=== PATIENT | female | born 1985 | race Caucasian/White ===

== ENCOUNTER → 2019-10-08 16:15 | Outpatient (CLI) | payer OTHER, MEDICAID, SELFPAY ==
[2019-10-08 17:22] LABS: Add Manual Diff / Slide Review NO; Basophils Absolute Auto 0 /uL (0-100); Basophils Percent Auto 0.4 % (0-2); Eosinophils Absolute Auto 300 /uL (0-450); Eosinophils Percent Auto 2.4 % (2-4); Hematocrit 44.6 % (36-46); Hemoglobin 15.4 g/dL (12.0-16.0); Lymphocytes Absolute Auto 2700 /uL (1100-4500); Lymphocytes Percent Auto 25.2 % (25-40); Mean Corpuscular HGB Conc 34.6 % (30-36); Mean Corpuscular Hemoglobin 30.6 PG (26-34); Mean Corpuscular Volume 88.6 fL (80-100); Monocytes Absolute Auto 800 /uL (0-900); Monocytes Percent Auto 7.5 % (3-14); Neutrophils Absolute Auto 6900 /uL (1500-7000); Neutrophils Percent Auto 64.5 % (50-75); Platelet Count 214 X10^3/uL (150-400); Red Blood Cell Count 5.03 X10^6/uL (4.0-5.2); Red Cell Distribution Width 13.5 % (11.6-14.8); White Blood Cell Count 10.6 X10^3/uL (4.5-11.0)
[2019-10-08 17:25] LABS: Appearance Urine UA CLEAR; Bilirubin Urine UA NEGATIVE (NEGATIVE); Color Urine UA YELLOW; Glucose Urine UA NEGATIVE (Negative); Ketones Urine UA NEGATIVE (NEGATIVE); Leukocyte Esterase Urine UA NEGATIVE (NEGATIVE); Nitrite Urine UA NEGATIVE (Negative); Occult Blood Urine UA TRACE-LYSED (Negative); Protein Urine UA NEGATIVE (Negative); Specific Gravity Urine UA >=1.030 (1.000-1.035); Urobilinogen Urine UA 0.2 E.U./dL (0.2)
[2019-10-08 17:43] LABS: Glucose 102 mg/dL (70-100)
[2019-10-08 17:51] LABS: Hemoglobin A1C% w Est Avg Glu 5.3 % (4.0-6.0)
[2019-10-08 18:19] LABS: Hepatitis B Surface Antigen NEGATIVE s/c (NEGATIVE); Rubella Antibody IgG 80.4 IU/mL (>15)
[2019-10-08 18:23] LABS: Thyroid Stimulating Hormone 1.04 uIU/mL (0.47-4.68)
[2019-10-08 18:37] LABS: HIV 1 & 2 Ab/Ag 4th Gen Combo NEGATIVE (NEGATIVE); Hep C Virus Ab w/Reflex Quant NEGATIVE s/c (NEGATIVE)
[2019-10-09 08:09] LABS: RPR Screen Non Reactive (Non Reactive); Varicella IgG Antibody 3026 index (Immune >165)
== END ==
PROVIDERS: PCP Family Medicine Geriatric Medicine
DX: O09.521 Supervision of elderly multigravida, first trimester (principal); Z83.49 Family history of other endocrine, nutritional and metabolic diseases
CPT/HCPCS: 36415; 80055; 81003; 82947; 83036; 84439; 84443; 86787; 86803; 86850; 86900; 86901; 87389

== ENCOUNTER → 2019-11-12 10:45 | Outpatient (CLI) | payer OTHER, MEDICAID, SELFPAY | PROVIDERS: PCP Family Medicine Geriatric Medicine; Referring Provider Obstetrics & Gynecology; Visit Provider Obstetrics & Gynecology | DX: O09.521 Supervision of elderly multigravida, first trimester (principal); Z36.0 Encounter for antenatal screening for chromosomal anomalies; Z3A.12 12 weeks gestation of pregnancy | CPT/HCPCS: 36415; 81420 ==

== ENCOUNTER → 2019-12-10 09:58 | Outpatient (CLI) | payer OTHER, MEDICAID, SELFPAY ==
[2019-12-14 10:19] LABS: AFP, Serum 23.8 ng/mL (.); Calc Gestational Age As provided (.); Inhibin A, Dimeric 191.58 pg/mL (.); Inhibin A, MoM 1.45 (.); Maternal Ethnicity Caucasian (.); Maternal Weight 224 lbs (.); Number of Fetuses No (.); OSBR Risk 1 IN 10000 (.); Results Report (.); Test Results *Screen Negative* (.); hCG, Serum 18078 mIU/mL (.)
== END ==
PROVIDERS: PCP Family Medicine Geriatric Medicine
DX: O09.529 Supervision of elderly multigravida, unspecified trimester (principal); Z3A.16 16 weeks gestation of pregnancy
CPT/HCPCS: 36415; 82105; 82677; 84702; 86336

== ENCOUNTER → 2020-02-04 12:45 | Outpatient (CLI) | payer OTHER, MEDICAID, SELFPAY ==
[2020-02-04 16:55] LABS: Hematocrit 39.8 % (36-46); Hemoglobin 13.2 g/dL (12.0-16.0)
[2020-02-04 17:25] LABS: GTT (PREG) 1 Hour PP 50gm Dose 141 mg/dL (76-139)
== END ==
PROVIDERS: PCP Family Medicine Geriatric Medicine
DX: Z34.82 Encounter for supervision of other normal pregnancy, second trimester (principal)
CPT/HCPCS: 36415; 82950; 85014; 85018

== ENCOUNTER → 2020-03-16 12:23 | Outpatient (CLI) | payer OTHER, MEDICAID, SELFPAY ==
[2020-03-16 12:30] LABS: Bacteria Urine None Seen; RBC Urine None Seen (0-5/HPF)
[2020-03-16 13:07] LABS: Appearance Urine UA CLEAR; Bilirubin Urine UA NEGATIVE (NEGATIVE); Color Urine UA YELLOW; Glucose Urine UA NEGATIVE (Negative); Ketones Urine UA NEGATIVE (NEGATIVE); Leukocyte Esterase Urine UA NEGATIVE (NEGATIVE); Nitrite Urine UA NEGATIVE (Negative); Occult Blood Urine UA NEGATIVE (Negative); Protein Urine UA NEGATIVE (Negative); Urobilinogen Urine UA 0.2 E.U./dL (0.2)
[2020-03-16 13:11] LABS: pH Urine UA 8.5 (4.5-8.0)
[2020-03-16 13:26] LABS: Amorphous Sediment Urine 1+; Culture Indicated Urine Cult Not Indicated; Mucus Urine 1+ (Negative); Squamous Epithelial Cell Urine 1-5 /HPF (0-5/HPF); WBC Urine 0-1/HPF (0-5/HPF)
== END ==
PROVIDERS: PCP Family Medicine Geriatric Medicine; Referring Provider Obstetrics & Gynecology; Visit Provider Obstetrics & Gynecology
DX: R35.0 Frequency of micturition (principal); Z34.90 Encounter for supervision of normal pregnancy, unspecified, unspecified trimester
CPT/HCPCS: 81001

== ENCOUNTER → 2020-05-03 10:43 | Outpatient (CLI) | payer OTHER, MEDICAID, SELFPAY ==
[2020-05-04 07:55] LABS: Strep Grp B PCR NEG for Grp B Strep
== END ==
PROVIDERS: PCP Family Medicine Geriatric Medicine; Visit Provider Obstetrics & Gynecology
DX: Z34.83 Encounter for supervision of other normal pregnancy, third trimester (principal); Z3A.36 36 weeks gestation of pregnancy
CPT/HCPCS: 87653

== ENCOUNTER 2020-05-17 21:09 | Inpatient (IN) | payer OTHER, MEDICAID, SELFPAY ==
[2020-05-17 21:14] VITALS: BP 121/71
[2020-05-17 22:02] LABS: Add Manual Diff / Slide Review NO; Basophils Absolute Auto 0 /uL (0-100); Basophils Percent Auto 0.2 % (0-2); Eosinophils Absolute Auto 200 /uL (0-450); Eosinophils Percent Auto 1.1 % (2-4); Hematocrit 38.8 % (36-46); Hemoglobin 13.1 g/dL (12.0-16.0); Lymphocytes Absolute Auto 3500 /uL (1100-4500); Lymphocytes Percent Auto 21.6 % (25-40); Mean Corpuscular HGB Conc 33.7 % (30-36); Mean Corpuscular Hemoglobin 29.1 PG (26-34); Mean Corpuscular Volume 86.3 fL (80-100); Monocytes Absolute Auto 1500 /uL (0-900); Monocytes Percent Auto 9.4 % (3-14); Neutrophils Absolute Auto 11000 /uL (1500-7000); Neutrophils Percent Auto 67.7 % (50-75); Platelet Count 248 X10^3/uL (150-400); Red Blood Cell Count 4.49 X10^6/uL (4.0-5.2); Red Cell Distribution Width 14.3 % (11.6-14.8); White Blood Cell Count 16.3 X10^3/uL (4.5-11.0)
[2020-05-17] MEDS: miSOPROStoL 25 MCG TABLET VAG (22:03)
[2020-05-18] MEDS: miSOPROStoL 25 MCG TABLET VAG (02:01)
[2020-05-18] MEDS: OXYTOCIN PREMIX 30 UNIT/500 ML PLAST..BAG IV (13:51)
--- NOTE | 2020-05-18 20:50 | PM.OBHP.1 ---
OB HPI Date/Time Date of admission: 05/18/20 Date Patient Seen: 05/18/20 Time Patient Seen: 07:30 History of Present Condition Chief complaint: EVAL OF LABOR : 3 Para: 1 Estimated Date of Delivery: 05/27/20 Estimated Gestational Age (weeks): 39 Narrative: Tamara Sahu is a 34 year old female Indications Indication for induction OB: maternal distance and history of rapid labor History of Present care: good care, initiated at week # (8), number of visits (10) and pounds weight gain (34) Dating criteria: LMP confirmed by 1st trimester US Ultrasounds: normal 1st trimester US and normal mid trimester US Obstetrical complications: none Preadmission Labs Blood type: O (+) positive -: Antibody screen: negative, GBS status: negative, HBsAG: negative, HIV: negative and RPR/VDLR: negative -: Chlamydia screen: not detected and Gonorrhea screen: not detected -: Rubella: immune and Varicella: immune HCT: 38.8 HCAB: negative PAP: Normal Quad screen: Normal Urine: Negative 1 hr GTT: 141 Prior (ies) History: at 41 weeks, rapid labor EAB Evaluation Evaluation Baseline heart rate: 135 Variability: Moderate (11-25) monitor accelerations: Present monitor decelerations: Absent Contraction Frequency (minutes): 5 Uterine Contraction Intensity: Mild Category of Tracing: Reactive Cervical dilation (cm): 4 Cervical effacement (%): 80 station: 0 Laboratory results: Laboratory Tests 05/17/20 05/17/20 21:00 21:00 WBC 16.3 H RBC 4.49 Hgb 13.1 Hct 38.8 MCV 86.3 MCH 29.1 MCHC 33.7 RDW 14.3 Plt Count 248 Neut % (Auto) 67.7 Lymph % (Auto) 21.6 L [place] % (Auto) 9.4 Eos % (Auto) 1.1 L Baso % (Auto) 0.2 Neut # (Auto) 86386 H Lymph # (Auto) 3500 [place] # (Auto) 1500 H Eos # (Auto) 200 Baso # (Auto) 0 Blood Type O Positive Antibody Screen Negative [facility] Medical History (Updated 03/28/20 @ 16:19 by Erica Clark MD) Eating disorder (Acute) Migraines (Acute) Ovarian cyst (Acute) Threatened miscarriage in early (Acute ~09/28/19) Surgical History (Updated 10/18/19 @ 10:43 by Sabrina Thompson RN) Anesthesia (Resolved) History of rhinoplasty (Resolved ~2001) History of tonsillectomy (Resolved ~1998) Status post LASIK surgery (Resolved ~2017) [place] teeth removed (Resolved ~1999) Family History (Updated 10/18/19 @ 10:44 by Sabrina Thompson RN) Grandfather Cancer Grandmother COPD (chronic obstructive pulmonary disease) Grandmother No problems noted. Grandfather Unknown family medical history Father No problems noted. Mother No problems noted. Sister Anxiety Brother Gunshot wound of chest Family/Other Hyperthyroidism Social History marital status: unmarried,single number of children: 1 household members: children pets and animals: Yes (X 1 Dog ) education level: college occupational status: employed current occupational exposures/hazards: No special aysha needs: No Smoking Status: Former smoker Tobacco: How many years used: 23 second hand exposure: No alcohol intake: former substance use type: does not use and former substance user Meds Home Medications and Allergies Home Medications Medication Instructions Recorded Confirmed Type . (No Home Medications) #0 05/30/10 05/10/20 History vitamins no.119-iron tab PO 10/01/19 05/10/20 History fumarate 29 mg-folic acid 1 mg tablet Allergies Allergy/AdvReac Type Severity Reaction Status Date / Time Opioids - Morphine Analogues Allergy Severe throat Verified 05/10/20 10:01 swelling narcotics Allergy Severe throat Uncoded 05/10/20 10:01 swelling Exam Vital Signs (past 8 hours): Generally: A well-developed, well-nourished female. Mild distress secondary to contractions Lungs: Clear to auscultation bilaterally Cardiovascular: Regular rate and rhythm Fundal height: 40 cm Estimated weight: 7-1/2 lb Extremities: Trace edema Objective Labs Result Diagrams: 05/17/20 21:00 Labs: Laboratory Results - last 24 hr 05/17/20 05/17/20 21:00 21:00 WBC 16.3 H RBC 4.49 Hgb 13.1 Hct 38.8 MCV 86.3 MCH 29.1 MCHC 33.7 RDW 14.3 Plt Count 248 Neut % (Auto) 67.7 Lymph % (Auto) 21.6 L [place] % (Auto) 9.4 Eos % (Auto) 1.1 L Baso % (Auto) 0.2 Neut # (Auto) 39526 H Lymph # (Auto) 3500 [place] # (Auto) 1500 H Eos # (Auto) 200 Baso # (Auto) 0 Blood Type O Positive Antibody Screen Negative Assessment and Plan Assessment and Plan Assessment and Plan narrative: Assessment: 34-year-old 3 para 1 at estimated gestational age of 39 weeks with a history of rapid labor Lives on [facility] Plan: Pitocin per protocol 2 Epidural as necessary Artificial rupture of membranes when able Expected management to spontaneous vaginal delivery Time Spent with Patient Total time spent with greater than 50% in coordination of care (as documented) at patient's floor/unit and/or counseling patient:: 15-24 minutes
--- NOTE | 2020-05-18 22:55 | P.PCNOB_ITS ---
Events: Labor Induction Labor & Delivery Delivery date: 05/18/20 Intrapartal events: None Cervical ripening method: per misoprostal protocol Induction method: per pitocin protocol Delivery augmentation: rupture of membranes Delivery monitor: external FHT and external uterine Route of delivery: Episiotomy description: None L&D Laceration Description: None Estimated blood loss (mL): 50 Anesthesia type: Epidural Complications: None [place] Baby 1: gender: Male Presentation: vertex Placenta delivery description: Spontaneous cord vessel description: 3 Vessels score (1 min): 9 score (5 min): 9 Narrative: Patient complete and pushed for 40 minutes. At 10:35 p.m., a live male delivered spontaneously in the NIYA presentation over an intact perineum. The remainder of the body delivered and was placed on mom's abdomen. The cord was double clamped and cut after it stopped pulsing. Cord bloods were obtained. Pitocin was given in the IV fluids. The placenta delivered intact with a three-vessel cord with a velamentous insertion at 10:41 p.m.. Fundus massaged to firm. Estimated blood loss 50 cc. No lacerations. Apgars 9 at 1 minute and 9 at 5 minutes. . Epidural analgesia. Mom and stable to recovery. Plan for aftercare: To routine care
--- NOTE | 2020-05-19 | PATH_ITS ---
[facility] Accession Number: [id number] . 01 Material submitted: . fallopian tube - BILATERAL FALLOPIAN TUBES . 01 Clinical history: . EVAL OF LABOR . 02 Diagnosis: Bilateral Fallopian Tubes, Bilateral Tubal Ligation: Two segments of fallopian tube. No evidence of neoplasm. MRV 05/23/2020 1248 Local . 02 Electronically signed: . Barron Conway MD, PhD, Pathologist NPI- [id number] . 01 Gross description: . The specimen is received in formalin, labeled bilateral fallopian tubes, and consists of two segments of fallopian tube measuring 0.9 cm in length by 0.5 cm in diameter and 1.5 cm in length by 0.6 cm in diameter. The serosa is pink-purple and smooth. Sectioning reveals a packer mucosa and a stellate lumen measuring 0.2 cm in diameter. The specimen is serially sectioned and entirely submitted cassettes A1-A2. (EA:[id number]) /[facility] 05/20/2020 1754 Local . 02 Microscopic: . Complete cross-sections of fallopian tube are seen from each tubular structure submitted. . 02 Pathologist provided ICD-10: Z30.2 . 02 CPT . 166532 Performed at: 01 [facility] [address], [place], [place] [id number] MD Niall Franklin MD Phone: [phone] Performed at: 02 [facility] [address] [place], [place] [id number] MD Saloni Sommers MD Phone: [phone]
[2020-05-19] MEDS: IBUPROFEN 600 MG TABLET PO ×4 (00:07→23:26)
[2020-05-19] MEDS: LANOLIN OINT 7 GM 1 APPLIC TOP (06:18)
[2020-05-19 07:22] LABS: Hematocrit 39.1 % (36-46); Hemoglobin 12.9 g/dL (12.0-16.0)
--- NOTE | 2020-05-19 09:52 | SUR.OPER ---
Supine on padded OR bed, head on pillow, arms secured on padded arm boards at <90 degrees abduction, legs uncrossed, safety belt at thigh, tape over blanket over lower legs.
--- NOTE | 2020-05-19 10:11 | PM.PREOP ---
Pre-operative Note COVID-19 COVID-19 status: Negative Result date/Date tested (Pos, Neg/Pending): 05/15/20 Interval Note History & Physical reviewed/Exam performed by Physician: Yes Changes to H&P: No H&P completed within 30 days and has changed as indicated here:: 05/18/20
[2020-05-19] MEDS: BUPIVACAINE 0.5% W/ EPI (PF) 30 ML VIAL INJ (10:42)
[2020-05-19 11:21] VITALS: BP 113/73; PULSE 64; RESP 22; TEMP 36.4; O2SAT 96
[2020-05-19 11:24] VITALS: BP 109/73; PULSE 71; RESP 17; O2SAT 98
[2020-05-19 11:36] VITALS: BP 118/81; PULSE 70; RESP 27; O2SAT 98
[2020-05-19] MEDS: ACETAMINOPHEN 325 MG TABLET 650 MG PO ×2 (17:27→23:26)
--- NOTE | 2020-05-19 22:29 | PM.GYNOP.1 ---
Operative Date/Time/Diagnoses Date of procedure: 05/19/20 Time of procedure: 11:00 Pre-op diagnosis: Multiparity Desires permanent sterilization Post-op diagnosis: same Procedure & Clinicians Procedure: Procedures Operation Date: 05/19/20 09:30 Actual Procedures Side Surgeon p Post Bilateral Tubal Ligation Erica Clark MD Indications: Multiparity Desires permanent sterilization Surgeon: Erica Clark Anesthesia Type: General Operative Notes Findings: After informed consent was obtained, the patient was taken to the operating room where she was placed in the dorsal supine position. After adequate general endotracheal anesthesia was achieved, she was prepped and draped in the usual sterile fashion. A time-out was performed. Two Allis clamps were placed 3 cm apart just below the umbilical fold. 10 cc of 0.25% Marcaine with epinephrine were injected underneath the skin. A 2 cm incision was made. The edges of the incision were grasped with Allis clamps. The incision was carried down to the fascia. The fascia was nicked in the midline and the incision extended with the Whitaker scissors. The peritoneum was identified, grasped between 2 hemostats, and entered sharply with the Metzenbaum scissors. The left tube was identified, grasped with [place], and carried out to the fimbriated end. 2[address] to the distal and a 2 cm segment of tube was ligated with 0 plain chromic x2. A 1 cm segment of tube was excised. The ends of the tube were cauterized for hemostasis. This was repeated on the patient's right side. Hemostasis was achieved. The fascia was closed using 0 Vicryl in a running fashion. The subcutaneous layer was copiously irrigated with warm normal saline. Three simple interrupted sutures with 3-0 Vicryl were placed to reapproximate the subcutaneous layer. The skin was closed with 4 0 Biosyn in a subcuticular fashion. Steri-Strips, 2 x 2, and op site was placed. Sponge, lap, and instrument counts were correct x2. The patient tolerated the procedure well, and was taken to PACU in stable condition. Closure Type: primary Specimen(s): portion of left tube and portion of right tube Estimated blood loss (mL): 3 Blood products transfused: none Complications: none Post-operative Condition: stable Disposition: PACU Plan for aftercare: To the [facility] after recovery
--- NOTE | 2020-05-19 22:31 | PM.OBPN.1 ---
Subjective - OB Subjective Patient comments: incisional pain baby status: doing well feeding status: exclusively breast feeding Date Patient Seen: 05/19/20 Time Patient Seen: 17:30 Exam Vital Signs (past 8 hours): Oxygen Delivery Method Room Air Narrative Exam Narrative: Generally: Patient lying in bed, no acute distress Lungs: Clear to auscultation bilaterally Cardiovascular: Regular rate and rhythm Abdomen: Soft, good bowel sounds. Fundus: Firm at U -2 Incision: Clean dry and intact with op site Extremities: 1+ edema, negative Homans Objective Labs Result Diagrams: 05/19/20 06:40 Labs: Laboratory Results - last 24 hr 05/19/20 06:40 Hgb 12.9 Hct 39.1 Assessment & Plan Plan day: 1 plan OB: routine care Comments: Routine postop care Time Spent With Patient Time: Total time spent is greater than 50% in coordination of care (as documented) at patient's floor/unit and/or counseling patient: Time with patient: 15-24 minutes
[2020-05-20] MEDS: IBUPROFEN 600 MG TABLET PO (07:33)
[2020-05-20 10:42] VITALS: BP 118/81; PULSE 70; RESP 27; TEMP 36.4
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
== END 2020-05-20 11:35 | disposition home or self-care (01) | DRG 798 ==
PROVIDERS: Admitting Provider Obstetrics & Gynecology; PCP Family Medicine Geriatric Medicine; Referring Provider Obstetrics & Gynecology; Visit Provider Obstetrics & Gynecology
PROC: 10E0XZZ Delivery of Products of Conception, External Approach (ICD-10-PCS; CPT 58605; principal; 2020-05-19 09:30)
DX: O99.334 Smoking (tobacco) complicating childbirth (principal); Z37.0 Single live birth; Z3A.39 39 weeks gestation of pregnancy; Z30.2 Encounter for sterilization; F17.210 Nicotine dependence, cigarettes, uncomplicated
CPT/HCPCS: 01967; 36415; 58605; 59050; 59200; 59400; 59409; 85014; 85018; 85025; 86850; 86900; 86901; G0379; J1885; J2590